=== PATIENT | female | born 1995 | race Caucasian/White ===

== ENCOUNTER 2021-09-19 10:38 | Emergency (ER) | payer SELFPAY ==
[2021-09-19 12:34] LABS: Bilirubin Neg (Negative); Blood, Urine 50 (Negative); Clarity Cloudy (Clear); Glucose, Urine (Dipstick) Normal (Negative); Ketone, Urine Negative (Negative); Leukocyte 25 (Negative); Nitrite Negative (Negative); Protein, Urine (Dipstick) Negative (Neg-Trace); Specific Gravity, Urine 1.015 (1.002-1.036); Urobilinogen Normal mg/dL (Less than 2)
[2021-09-19 12:40] LABS: Pregnancy Test - Urine (BHCG) Negative (Negative); Pregu Control Background? CLEAR/WHITE (CLR/WHITE); Pregu Control Bar Appear? YES (CONTROL BAR); Specific Gravity 1.015 (1.002-1.036)
[2021-09-19 13:09] LABS: RBC/HPF 0-3 HPF (0-3)
[2021-09-19 13:10] LABS: Mucous/LPF 1+ LPF (<2+)
[2021-09-19 13:11] LABS: Bacteria/HPF 2+ HPF (None Seen)
== END 2021-09-19 13:03 | disposition left against medical advice (07) ==
LOC: CSHERS 10:38
DX: O26.851 Spotting complicating pregnancy, first trimester (principal); Z3A.08 8 weeks gestation of pregnancy
CPT/HCPCS: 81003; 81015; 81025; 99284